=== PATIENT | female | born 1940 | race Caucasian/White ===

== ENCOUNTER → 2016-10-11 | Outpatient (CLI) | payer MEDICARE, MEDICAID | END | disposition home or self-care (01) | LOC: YCFC.O 08:08 | PROVIDERS: ATTEND Nurse Practitioner Family | DX: E78.2 Mixed hyperlipidemia (principal); E53.8 Deficiency of other specified B group vitamins; Z13.29 Encounter for screening for other suspected endocrine disorder ==

== ENCOUNTER → 2017-01-23 | Outpatient (CLI) | payer MEDICARE, MEDICAID | END | disposition home or self-care (01) | LOC: YCFC.O 07:46 | PROVIDERS: ATTEND Nurse Practitioner Family | DX: E78.2 Mixed hyperlipidemia (principal) ==

== ENCOUNTER → 2017-03-19 | Outpatient (CLI) | payer MEDICARE, MEDICAID | END | disposition home or self-care (01) | LOC: MAMMO 14:57 | PROVIDERS: ATTEND Nurse Practitioner Family | DX: Z12.31 Encounter for screening mammogram for malignant neoplasm of breast (principal) | CPT/HCPCS: 77063; G0202 ==

== ENCOUNTER → 2017-09-28 | Outpatient (CLI) | payer MEDICARE, MEDICAID ==
--- NOTE | 2017-09-28 16:50 | RAD ---
EXAM DESCRIPTION: Chest,2 Views CLINICAL HISTORY: 77 years Female, CHEST PAIN COMPARISON: 10 August 2014 TECHNIQUE: PA/lateral FINDINGS: There is no cardiac or pulmonary abnormality. The lungs are clear. There is no effusion. IMPRESSION: 1. Normal two-view chest. Electronically signed by: Angelo Lara MD 09/28/2017 4:49 PM CDT
== END ==
LOC: LAB.O 15:46
PROVIDERS: ATTEND Nurse Practitioner Family
DX: R07.9 Chest pain, unspecified (principal); R06.02 Shortness of breath

== ENCOUNTER → 2018-02-15 | Outpatient (CLI) | payer MEDICARE, MEDICAID | LOC: LAB.NP 09:01 | PROVIDERS: ATTEND Internal Medicine Hematology & Oncology | DX: D50.8 Other iron deficiency anemias (principal); D53.1 Other megaloblastic anemias, not elsewhere classified ==

== ENCOUNTER → 2018-04-02 | Outpatient (CLI) | payer MEDICARE, MEDICAID ==
--- NOTE | 2018-04-03 13:03 | MAM ---
EXAM DESCRIPTION: 3D Screening BILATERAL : Digital Mammography. CLINICAL HISTORY: 77 years Female SCREENING . No complaints or personal history of breast cancer. Remote family history of breast cancer. Childbirth. Postmenopausal. Currently on HRT. Lifetime risk of developing breast cancer (Tyrer-Cuzick model)(%): 3.8. COMPARISON: Bilateral screening digital breast tomosynthesis 03/19/2017. TECHNIQUE: Bilateral CC and MLO projection full-field images, digital tomosynthesis mammographic technique. Bilateral digital 2-D full-field MLO images. CAD not available for tomosynthesis or 2-D images. FINDINGS: The breast parenchymal density pattern is: Scattered areas of fibroglandular density. No skin thickening or nipple retraction. Bilateral scattered solitary microcalcifications. Lymph node in the left axillary tail. No new focal, stellate mass or density, focal asymmetry , and no suspicious microcalcifications bilaterally. Stable mammograms compared to prior study. IMPRESSION: Benign exam. BIRAD CATEGORY: 2 BENIGN FINDINGS. RECOMMENDATIONS: FOLLOW UP: Routine digital bilateral mammographic screening, one year interval from March 2018. Written communication explaining the IMPRESSION and follow-up, will be mailed to the patient and referring health care provider. According to the [employer], yearly mammograms are recommended starting at age 40 and continuing as long as a woman is in good health. Any breast change noted on a breast self-exam should be reported promptly to the patient's healthcare provider. Breast MRI is recommended for women with an approximately 20-25% or greater lifetime risk of breast cancer, including women with a strong family history of breast or ovarian cancer and women who have been treated for Hodgkin's disease. A negative mammographic report should not delay tissue diagnosis in patients with significant clinical history or physical findings. Extremely dense breast tissue limits the sensitivity of digital mammography. Electronically signed by: Orlando Vargas MD 04/03/2018 1:01 PM LEAD ESTHETICIAN
== END ==
LOC: MAMMO 14:00
PROVIDERS: ATTEND Nurse Practitioner Family
DX: Z12.31 Encounter for screening mammogram for malignant neoplasm of breast (principal)

== ENCOUNTER → 2018-08-08 | Outpatient (CLI) | payer MEDICARE, MEDICAID ==
--- NOTE | 2018-08-09 08:29 | MRI ---
EXAM: Cervical Spine CLINICAL HISTORY: NECK PN COMPARISON STUDY: None TECHNICAL: Noncontrast MRI images were acquired through the cervical spine in multiple planes and sequences. FINDINGS: The cervical vertebral bodies are in appropriate anatomic alignment. There is no evidence of a fracture. There are no bone marrow signal changes to indicate edema or inflammation. The craniocervical junction is negative. There is no spinal cord compression, spinal cord mass or spinal cord signal abnormality. C2-3: No disc herniation, canal stenosis or nerve root impingement. There is a 2 mm diffuse annular bulge. C3-4: A left paracentral disc protrusion measures 2.5 mm and indents the thecal sac. The left exiting foramina is moderate to severe stenosis due to uncovertebral joint osteophytes, facet arthropathy and lateral disc protrusion. The exiting nerve root is compressed C4-5: Minimal annular bulge but no focal disc herniation, canal stenosis or nerve root impingement. C5-6: Minimal diffuse annular bulge less than 3 mm with no central spinal canal stenosis. Uncovertebral joint osteophytes cause mild stenosis of both exiting foramina. There are [id number] facet arthropathy changes. C6-7: Disc height loss is present. Posterior endplate osteophytic changes and disc protrusion are between 2.5 and 3 mm. The central spinal canal is not stenotic and measures greater than 12 mm. There are disc protrusions and osteophytic changes that extend laterally on each side up to 4 mm these changes cause moderate stenosis of the exiting foramina. C7-T1: 3 mm anterior spondylolisthesis without a focal disc herniation. There is no central spinal canal stenosis. There is mild stenosis of the foramina and moderate facet arthropathy. IMPRESSION: 1. Central and lateral disc protrusions are most pronounced at C6-7 causing moderate stenosis of the exiting foramina and probably contact of the exiting nerve roots. 2. 3 mm spondylolisthesis at C7-T1 without neurologic impingement. 3. Mild impingement of the left exiting nerve root at C3-4 is a combination of disc protrusion, uncovertebral joint osteophytes and hypertrophic left facet arthropathy. Electronically signed by: Sascha Wilde MD 08/09/2018 8:25 AM CDT
== END ==
LOC: MRI 09:00
PROVIDERS: ATTEND Family Medicine
DX: M50.223 Other cervical disc displacement at C6-C7 level (principal); M43.12 Spondylolisthesis, cervical region

== ENCOUNTER → 2018-11-29 | Outpatient (CLI) | payer MEDICARE, MEDICAID | LOC: LAB.O 08:08 | PROVIDERS: ATTEND Internal Medicine Hematology & Oncology | DX: C90.00 Multiple myeloma not having achieved remission (principal) ==

== ENCOUNTER → 2018-12-16 | Outpatient (CLI) | payer MEDICARE, MEDICAID | LOC: LAB.O 15:51 | PROVIDERS: ATTEND Internal Medicine Hematology & Oncology | DX: C90.00 Multiple myeloma not having achieved remission (principal) ==

== ENCOUNTER → 2019-01-07 | Outpatient (CLI) | payer MEDICARE, MEDICAID | LOC: LAB.O 10:41 | PROVIDERS: ATTEND Internal Medicine Hematology & Oncology | DX: C90.00 Multiple myeloma not having achieved remission (principal) ==

== ENCOUNTER 2019-01-14 | Emergency (ER) | payer MEDICARE, MEDICAID ==
--- NOTE | 2019-01-14 11:30 | ED.PDOC ---
History of Present Illness - General Chief Complaint: Dental/Mouth Stated Complaint: toothache Time Seen by Provider: 01/14/19 11:24 - History of Present Illness Initial Comments: THE PATIENT ELOPED/LEFT WITHOUT BEING SEEN. Allergies/Adverse Reactions: Allergies Penicillins Allergy (Unverified 05/15/12 13:26) Sulfa Drugs Allergy (Unverified 05/15/12 13:26) Home Medications: Ambulatory Orders Estradiol Patch 0.05MG [Climara] 0.05 mg TOP DAILY 09/21/15 Ninlaro 3 Mg 3 mg PO .[facility] 01/14/19 RX: Dexamethasone 20 mg PO .[facility] 01/14/19 Revlimid 10 Mg 10 mg PO DAILY 01/14/19 Past Medical History (General) - Patient Medical History Hx Stroke: No Hx Congestive Heart Failure: No Hx Diabetes: No Hx Cancer: Yes - Multiple Myeloma Surgical History: Hysterectomy - Vaccination History Hx Influenza Vaccination: Yes Hx Pneumococcal Vaccination: Yes - Social History Hx Tobacco Use: No Family Medical History - Family History Mother Family History: Unknown Living Status: Unknown Departure - Departure Clinical Impression: Eloped from emergency department Disposition: Left Without Being Seen Referrals: Adelfo Turner MD [Primary Care Provider] - 1-2 Weeks Home Medications: Ambulatory Orders Estradiol Patch 0.05MG [Climara] 0.05 mg TOP DAILY 09/21/15 Ninlaro 3 Mg 3 mg PO .[facility] 01/14/19 RX: Dexamethasone 20 mg PO .[facility] 01/14/19 Revlimid 10 Mg 10 mg PO DAILY 01/14/19
== END 2019-01-14 11:28 | disposition left against medical advice (07) ==

== ENCOUNTER → 2019-02-26 | Outpatient (CLI) | payer MEDICARE, MEDICAID | LOC: LAB.O 11:46 | PROVIDERS: ATTEND Internal Medicine Hematology & Oncology | DX: C90.00 Multiple myeloma not having achieved remission (principal) ==

== ENCOUNTER → 2019-03-10 | Outpatient (CLI) | payer MEDICARE, MEDICAID | LOC: LAB.O 11:23 | PROVIDERS: ATTEND Internal Medicine Hematology & Oncology | DX: C90.00 Multiple myeloma not having achieved remission (principal) ==

== ENCOUNTER → 2019-04-07 | Outpatient (CLI) | payer MEDICARE, MEDICAID ==
--- NOTE | 2019-04-09 15:23 | MAM ---
EXAM DESCRIPTION: 3D Screening BILATERAL : Digital Mammography. CLINICAL HISTORY: 78 years Female ANNUAL SCREENING . No complaints. No personal history of breast cancer. Remote family history of breast cancer. Menarche age 13. First child (27. Hysterectomy age 40. Currently on HRT. No genetic history.. Lifetime risk of developing breast cancer (Tyrer-Cuzick model)(%): 3.5%. COMPARISON: Bilateral screening digital breast tomosynthesis 02 April 2018, and 19 March 2017. TECHNIQUE: Bilateral CC and MLO projection full-field images, digital tomosynthesis mammographic technique. Bilateral digital 2-D full-field MLO images. CAD not available for tomosynthesis or 2-D images. FINDINGS: The breast parenchymal density pattern is: Heterogeneously dense breast tissue, which may obscure small masses. No skin thickening or nipple retraction. Bilateral nodular type of fibroglandular changes. Bilateral solitary microcalcifications. Bilateral vascular calcifications. Bilateral lymph nodes and axillary tail. No new focal, stellate mass or density, focal asymmetry , and no suspicious microcalcifications bilaterally. Stable mammograms compared to prior study. Taking into account, differences in mammographic technique. IMPRESSION: Benign exam. BIRAD CATEGORY: 2 BENIGN FINDINGS. RECOMMENDATIONS: FOLLOW UP: Routine digital bilateral mammographic screening, one year interval from March 2019. Written communication explaining the IMPRESSION and follow-up, will be mailed to the patient and referring health care provider. According to the [employer], yearly mammograms are recommended starting at age 40 and continuing as long as a woman is in good health. Any breast change noted on a breast self-exam should be reported promptly to the patient's healthcare provider. Breast MRI is recommended for women with an approximately 20-25% or greater lifetime risk of breast cancer, including women with a strong family history of breast or ovarian cancer and women who have been treated for Hodgkin's disease. A negative mammographic report should not delay tissue diagnosis in patients with significant clinical history or physical findings. Extremely dense breast tissue limits the sensitivity of digital mammography. Electronically signed by: Orlando Vargas MD 04/09/2019 3:21 PM SENIOR [employer]SUMER [employer]S CONSULTANT
== END | disposition home or self-care (01) ==
LOC: MAMMO 13:05
PROVIDERS: ATTEND Family Medicine
DX: Z12.31 Encounter for screening mammogram for malignant neoplasm of breast (principal)

== ENCOUNTER → 2019-04-24 | Outpatient (CLI) | payer MEDICARE, MEDICAID | LOC: LAB.O 13:49 | PROVIDERS: ATTEND Internal Medicine Hematology & Oncology | DX: C90.00 Multiple myeloma not having achieved remission (principal) ==

== ENCOUNTER → 2019-05-15 | Outpatient (CLI) | payer MEDICARE, MEDICAID | LOC: LAB.O 10:57 | PROVIDERS: ATTEND Internal Medicine Hematology & Oncology | DX: C90.00 Multiple myeloma not having achieved remission (principal) ==

== ENCOUNTER → 2019-05-29 | Outpatient (CLI) | payer MEDICARE, MEDICAID | LOC: LAB.O 14:59 | PROVIDERS: ATTEND Internal Medicine Hematology & Oncology | DX: C90.00 Multiple myeloma not having achieved remission (principal) ==

== ENCOUNTER 2019-10-21 | Emergency (ER) | payer MEDICARE, MEDICAID ==
--- NOTE | 2019-10-21 14:49 | ED.PDOC ---
History of Present Illness - General Chief Complaint: Bite: Animal/Insect/Human Stated Complaint: redness,swelling by left eye Time Seen by Provider: 10/21/19 14:37 Source: patient Exam Limitations: no limitations - History of Present Illness Initial Comments: STUNG OR BITTEN ON FACE YETERDAY. WAS WORSE YESTERDAY. DENIES ANY PAIN TODAY. Timing/Duration: constant Severity: mild Improving Factors: nothing Worsening Factors: nothing Associated Symptoms: denies symptoms Allergies/Adverse Reactions: Allergies Penicillins Allergy (Unverified 05/15/12 13:26) Sulfa Drugs Allergy (Unverified 05/15/12 13:26) Home Medications: Ambulatory Orders Estradiol Patch 0.05MG [Climara] 0.05 mg TOP DAILY 09/21/15 Dexamethasone 20 mg PO .[facility] 01/14/19 Ninlaro 3 Mg 3 mg PO .[facility] 01/14/19 Revlimid 10 Mg 10 mg PO DAILY 01/14/19 Review of Systems - Review of Systems Constitutional: States: no symptoms reported EENTM: States: no symptoms reported Respiratory: Denies: cough, short of breath, wheezing Cardiology: States: no symptoms reported Gastrointestinal/Abdominal: States: no symptoms reported Genitourinary: States: no symptoms reported Musculoskeletal: States: no symptoms reported Skin: States: lumps. Denies: rash Neurological: States: no symptoms reported Endocrine: States: no symptoms reported Hematologic/Lymphatic: States: no symptoms reported All other Systems: Reviewed and Negative Past Medical History (General) - Patient Medical History Hx Stroke: No Hx Congestive Heart Failure: No Hx Diabetes: No Hx Cancer: Yes - Multiple Myeloma Surgical History: Hysterectomy - Vaccination History Hx Influenza Vaccination: Yes Hx Pneumococcal Vaccination: Yes - Social History Hx Tobacco Use: No Family Medical History - Family History Mother Family History: Unknown Living Status: Unknown Physical Exam - Physical Exam General Appearance: Alert, No apparent distress Eye Exam: bilateral normal Ears, Nose, Throat: hearing grossly normal, normal ENT inspection, normal pharynx Neck: non-tender, full range of motion, supple, normal inspection Respiratory: chest non-tender, lungs clear, normal breath sounds, no respiratory distress, no accessory muscle use Cardiovascular/Chest: normal peripheral pulses, regular rate, rhythm, no murmur Peripheral Pulses: radial,right: 2+, radial,left: 2+ Gastrointestinal/Abdominal: normal bowel sounds, non tender, soft Back Exam: normal inspection Extremity: normal range of motion, normal inspection Neurologic: helicopter technician II-XII nml as tested, no motor/sensory deficits, alert, normal mood/affect Skin Exam: normal color, warm/dry, other - L ZYGOMATIC ARCH HAS FAINT, SUPERFICIAL EDEMA. NTTP. NO ERYTHEMA. NO IFXN. Lymphatic: no adenopathy Progress - Progress Progress: 10/21/19 14:55 INSECT ENVENOMATION - NO ANAPHYLAXIS. LOCAL APPROPRIATE REACTION TO THE VENOM. NO IFXN. NO PAIN. WILL RESOLVE WITH TIME. MAY USE ICE PACKS. Departure - Departure Clinical Impression: Insect bites Qualifiers: Encounter type: initial encounter Site of insect bite: head Site of insect bite of head: other part Qualified Code(s): S00.96XA - Insect bite (nonvenomous) of unspecified part of head, initial encounter; W57.XXXA - Bitten or stung by nonvenomous insect and other nonvenomous arthropods, initial encounter Disposition: Discharge to Home or Self Care Condition: Good Departure Forms: ED Discharge - Pt. Copy, Patient Portal Self Enrollment Instructions: DI for Insect Bites and Stings Diet: resume usual diet Activity: increase activity as tolerated Referrals: Adelfo Turner MD [Primary Care Provider] - 1-2 Weeks Home Medications: Ambulatory Orders Estradiol Patch 0.05MG [Climara] 0.05 mg TOP DAILY 09/21/15 Dexamethasone 20 mg PO .[facility] 01/14/19 Ninlaro 3 Mg 3 mg PO .[facility] 01/14/19 Revlimid 10 Mg 10 mg PO DAILY 01/14/19
== END 2019-10-21 15:01 | disposition home or self-care (01) ==